=== PATIENT | male | born 1985 | race Two or more races ===

== ENCOUNTER 2017-12-13 20:28 | Emergency (ER) | payer SELFPAY ==
[~2017-12-13] VITALS: Ht 165.1 cm; Wt 70.8 kg
[2017-12-13 20:34] VITALS: BP 141/82
[2017-12-13] MEDS ORDERED: LIDOCAINE 1% INJ 50 ML MDV IJ ONE ×2 (20:57→21:00)
[2017-12-13] MEDS ORDERED: TDAP [DIPH/PERTUSSIS/TET] 0.5 ML VIAL IM ONE ×2 (20:57→21:00)
[2017-12-13] MEDS ORDERED: ACETAMINOPHEN ES 500 MG TABLET ONE (20:58)
[2017-12-13] MEDS ORDERED: ACETAMINOPHEN ES 500 MG TABLET PO ONE (21:00)
--- NOTE | 2017-12-13 22:52 | NUR ---
sutures intact. placed on wound dressing, clean and dry. Patient discharged to home in stable condition. Written and verbal after care instructions given. Patient verbalizes understanding of instruction. Patient is ambulatory with steady gait, accompanied by friend. vss. nad noted. no further complaints.
== END 2017-12-13 22:53 | disposition home or self-care (01) ==
LOC: ER 20:32
DX: S61.011A Laceration without foreign body of right thumb without damage to nail, initial encounter (principal); W22.8XXA Striking against or struck by other objects, initial encounter; Y93.89 Activity, other specified; Y92.89 Other specified places as the place of occurrence of the external cause; Y99.8 Other external cause status
CPT/HCPCS: 73140-TC; 90715; A4606; A6402; J3490; Z7610